=== PATIENT | male | born 1985 | race Caucasian/White ===

== ENCOUNTER 2017-08-07 06:12 | Day surgery (SDC) | payer BC ==
[~2017-08-07] VITALS: Ht 167.6 cm; Wt 90.7 kg
[2017-08-07] MEDS ORDERED: COCAINE 4% SOLUTION TP ONE (07:30)
[2017-08-07] MEDS ORDERED: LR 1,000 ML IV SCH (08:23)
[2017-08-07] MEDS ORDERED: METOCLOPRAMIDE HCL 10 MG/2 ML VIAL IVP PRN (08:30)
[2017-08-07] MEDS ORDERED: MORPHINE 4 MG/ML INJ. SYRINGE IVP PRN ×3 (08:30)
[2017-08-07] MEDS ORDERED: HYDROcodone/ACETAMIN 5-325 MG TAB (NORCO/ VICODIN) PO ONE (11:00)
[2017-08-07] MEDS ORDERED: HYDROcodone/ACETAMIN 5-325 MG TAB (NORCO/ VICODIN) ONE (11:04)
[2017-08-07 11:15] VITALS: BP_SYST 128
== END 2017-08-07 12:30 | disposition home or self-care (01) ==
LOC: SMU 06:12 → SDS 06:12
PROVIDERS: ATTEND Otolaryngology
DX: J34.2 Deviated nasal septum (principal); J34.3 Hypertrophy of nasal turbinates; Z68.32 Body mass index [BMI] 32.0-32.9, adult
CPT/HCPCS: 30140; 30520; 71046; J7120